=== PATIENT | female | born 2000 | race Caucasian/White ===

== ENCOUNTER 2024-02-19 19:13 | Emergency (ER) | payer BC ==
[~2024-02-19] VITALS: Ht 162.6 cm; Wt 97.5 kg
[2024-02-19 19:27] VITALS: PULSE 83; RESP 18; TEMP 98.3
[2024-02-19] MEDS ORDERED: IBUPROFEN 600 MG TAB ONE (19:31)
[2024-02-19] MEDS: IBUPROFEN 600 MG TAB PO STA (19:37)
[2024-02-20 00:35] VITALS: BP 130/67; PULSE 75; RESP 19; TEMP 98; O2SAT 100
== END 2024-02-19 20:44 | disposition home or self-care (01) ==
LOC: ER 19:18
DX: R06.02 Shortness of breath (principal); R07.89 Other chest pain; Q21.3 Tetralogy of Fallot; R94.31 Abnormal electrocardiogram [ECG] [EKG]
CPT/HCPCS: 71045; 93005; 99283